=== PATIENT | female | born 1980 | race Caucasian/White ===

== ENCOUNTER 2019-07-31 09:01 | Outpatient (CLI) | payer OTHER, SELFPAY ==
--- NOTE | ~2019-07-31 | XR_ITS ---
XR chest 2V DATE: 07/31/2019 09:34 INDICATION: Cough for 5 to 6 days. History of asthma. TECHNIQUE: 08/15/2018 2 view chest COMPARISON: 08/15/2018 2 view chest FINDINGS: Normal heart size. No hilar or mediastinal enlargement. No pulmonary infiltrate or consolid ation, pleural effusion or pulmonary vascular congestion or pneumothorax. Old healed left clavicular mid shaft fracture deformity. IMPRESSION: No active cardiopulmonary disease Reviewed, dictated and finalized at location A.
== END 2019-07-31 09:02 | disposition home or self-care (01) ==
LOC: ANHIMG 09:06
PROVIDERS: PCP Emergency Medicine; Visit Provider Emergency Medicine
DX: R05 Cough (principal)
CPT/HCPCS: 71046

== ENCOUNTER 2019-08-01 11:41 | Outpatient (CLI) | payer OTHER, SELFPAY ==
[2019-08-01 12:02] LABS: Hematocrit 42.8 % (37.0-47.0); Hemoglobin 14.2 g/dL (12.0-15.0); Mean Corpuscular HGB Conc 33.2 g/dl (32-36); Mean Corpuscular Hemoglobin 29.5 pg (26-34); Mean Platelet Volume 11.3 fl (7.4-10.4); Platelet Count Result 280 k/mm3 (150-375); Red Blood Count 4.81 M/mm3 (4.2-5.4); Red Cell Distribution Width 12.3 % (11.5-14.5); White Blood Count 13.2 K/mm3 (4.5-10.0)
[2019-08-01 14:25] LABS: Hepatitis B Surface Antigen Negative (Negative)
[2019-08-01 14:30] LABS: HAV RESULT Negative (Negative); Hepatitis B Core IgM Result Negative (Negative)
[2019-08-01 14:47] LABS: Hepatitis C Virus Antibody Reactive (Negative)
[2019-08-03 09:54] LABS: Hepatitis C RNA, Quant PCR <15 IU/mL
== END 2019-08-01 11:42 | disposition home or self-care (01) ==
LOC: ANHLAB 11:45
PROVIDERS: PCP Emergency Medicine; Visit Provider Emergency Medicine
DX: D72.829 Elevated white blood cell count, unspecified (principal)
CPT/HCPCS: 36415; 80074; 85027; 87522

== ENCOUNTER 2019-12-15 11:45 | Outpatient (CLI) | payer OTHER, SELFPAY ==
[2019-12-15 12:15] LABS: Basophils Absolute Auto 0.1 K/mm3 (0.0-0.1); Basophils Percent Auto 0.5 % (0.2-1.2); Eosinophils Absolute Auto 0.2 K/mm3 (0-0.3); Eosinophils Percent Auto 1.5 % (0-4.4); Hematocrit 43.8 % (37.0-47.0); Hemoglobin 14.6 g/dL (12.0-15.0); Immature Granulocyte Absolute 0.06 K/mm3 (0.00-0.031); Immature Granulocyte Percent A 0.6 % (0-0.5); Lymphocytes Absolute Auto 2.54 K/mm3 (0.9-3.2); Lymphocytes Percent Auto 23.4 % (18.3-44.2); Mean Corpuscular HGB Conc 33.3 g/dl (32-36); Mean Corpuscular Hemoglobin 29.1 pg (26-34); Mean Corpuscular Volume 87.3 fl (80-100); Mean Platelet Volume 11.7 fl (7.4-10.4); Monocytes Absolute Auto 0.7 K/mm3 (0.1-0.6); Monocytes Percent Auto 6.2 % (2.6-8.5); Neutrophils Absolute Auto 7.4 K/mm3 (1.3-6.7); Neutrophils Percent Auto 67.8 % (45.5-73.1); Platelet Count Result 276 k/mm3 (150-375); Red Blood Count 5.02 M/mm3 (4.2-5.4); Red Cell Distribution Width 12.1 % (11.5-14.5); White Blood Count 10.9 K/mm3 (4.5-10.0)
[2019-12-15 13:06] LABS: Anion Gap 11 mmol/L (8-16); Blood Urea Nitrogen 14 mg/dL (7-17); Calcium 9.1 mg/dL (8.4-10.2); Carbon Dioxide 20 mmol/L (22-30); Chloride 107 mmol/L (98-107); Estimated Glomerular Filt Rate > 60; Glucose 94 mg/dL (65-105); Potassium 4.2 mmol/L (3.4-5.0); Sodium 138 mmol/L (137-145)
[2019-12-15 13:10] LABS: Iron 84 ug/dL (37-170)
[2019-12-15 13:17] LABS: Percent Iron Saturation 24 % (20-50)
== END 2019-12-15 11:46 | disposition home or self-care (01) ==
PROVIDERS: PCP Emergency Medicine; Visit Provider Internal Medicine Hematology & Oncology
DX: D64.9 Anemia, unspecified (principal)
CPT/HCPCS: 36415; 80048; 82728; 83540; 83550; 85025

== ENCOUNTER 2020-07-11 09:15 | Emergency (ER) | payer OTHER, SELFPAY ==
--- NOTE | 2020-07-11 09:38 | ED.BACK ---
HPI - Back Pain/Injury General Chief Complaint: Back Pain/Injury Stated Complaint: right lower back pain/swelling Time Seen by Provider: 07/11/20 09:41 Source: patient and RN notes reviewed Mode of arrival: ambulatory Limitations: no limitations History of Present Illness HPI Narrative: 39-year-old female presents with concern for acute back pain. Reports chronic back pain, C5-C6 degenerative disc disease. Reports for 1 day she has had severe low right back pain that radiates to the mid back and down the right leg. She reports right leg weakness. She reports right lower back edema and tenderness. She denies fever, abdominal pain, loss of bowel or bladder function. She denies perianal anesthesia. 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 Reports she has been taking ibuprofen, last took ibuprofen last night. Reports she also uses medical marijuana and has not used that recently. Reports up until 2 months ago had been getting monthly cortisone IM injections by her primary care physician for back pain. Patient using a walker for assistance with ambulation, does not use a walker at baseline. MD elicited complaint: back pain Related Data Home Medications Medication Instructions Recorded Confirmed ibuprofen [Motrin] 800 mg PO TID 07/11/20 07/11/20 Allergies Allergy/AdvReac Type Severity Reaction Status Date / Time povidone-iodine Allergy Severe TOLD NOT Verified 07/11/20 09:41 TO USE DUE TO SHELLFISH ALLERGY shellfish derived Allergy Severe THROAT Verified 07/11/20 09:41 SWELLING soap Allergy Severe TOLD NOT Verified 07/11/20 09:41 TO USE DUE TO SHELLFISH ALLERGY povidone Allergy Unknown Verified 07/11/20 09:41 Contrast Media Allergy Severe Unknown-TOLD Uncoded 07/11/20 09:41 BY PARENT NOT TO RECIEVE Review of Systems Review of Systems: Narrative: CONSTITUTIONAL: Denies malaise, chills, sweats, or fever. EYES: Denies visual changes CARDIOVASCULAR: Denies chest pain, palpitations, or edema. RESPIRATORY: Denies cough or dyspnea. GASTROINTESTINAL: Denies abdominal pain, vomiting, diarrhea. Reports chronic nausea, no change in nausea. Denies loss of bowel function GENITOURINARY: Denies dysuria or hematuria. Denies loss of bladder function SKIN: Denies bruising, redness MUSCULOSKELETAL: Reports severe right low back pain, swelling, tenderness. Denies other joint pain or myalgia. Denies perianal anesthesia NEUROLOGIC: Reports right leg numbness, weakness. Denies headache. PSYCHIATRIC: Denies anxiety or depression. All systems reviewed & are unremarkable except as noted in HPI and below PMFSH Social History Social History Smoking status: Current every day smoker Alcohol intake: never Gender identity (if verbalized by the patient): Female Comments At time of signature, agree with nursing past medical, surgical, social and family history. There is no relevant family history pertinent to the presenting complaint Exam Narrative: Exam Narrative: GENERAL: Well-appearing, well-nourished, and in no acute distress. HEAD: Normocephalic, atraumatic. EYES: PERRLA and EOMI. NECK: Supple. No lymphadenopathy. CHEST: Clear to auscultation. No respiratory distress. HEART: Regular rate and rhythm. Distal pulses palpable and equal, cap refill <3 seconds ABDOMEN: Obese, nontender. No CVA tenderness MUSCULOSKELETAL: Decreased strength with hip flexion. No midline back tenderness to palpation. Right lower paraspinal edema tenderness. Unable to easily transfer from sitting to standing. Gait assisted with walker SKIN: Warm, dry, no rash. No ecchymosis, erythema, open wounds to back. NEURO: No focal deficits. Alert and oriented x3. Reflexes intact. Normal gait. PSYCH: Normal mood and affect Course Course Emergency Course: Patient is aware of, understands and agrees to be transferred to the emergency department. Patient agrees to procee
[2020-07-11 09:41] VITALS: BP 120/83; PULSE 66; RESP 16; TEMP 36; O2SAT 98
[2020-07-11] MEDS: KETOROLAC (*BKC) 60 MG/2 ML VIAL IM (10:03)
== END 2020-07-11 10:15 | disposition short-term general hospital (02) ==
PROVIDERS: Emergency Provider Nurse Practitioner; PCP Internal Medicine
DX: M62.81 Muscle weakness (generalized) (principal); M54.41 Lumbago with sciatica, right side; F17.200 Nicotine dependence, unspecified, uncomplicated; M50.322 Other cervical disc degeneration at C5-C6 level
CPT/HCPCS: 96372; 99213; G0463; J1885

== ENCOUNTER 2020-09-10 10:31 | Outpatient (CLI) | payer OTHER, SELFPAY ==
[2020-09-10 11:10] LABS: Basophils Absolute Auto 0.1 K/mm3 (0.0-0.1); Basophils Percent Auto 0.5 % (0.2-1.2); Eosinophils Absolute Auto 0.2 K/mm3 (0-0.3); Eosinophils Percent Auto 2.1 % (0-4.4); Hematocrit 40.1 % (37.0-47.0); Hemoglobin 13.7 g/dL (12.0-15.0); Immature Granulocyte Absolute 0.07 K/mm3 (0.00-0.031); Immature Granulocyte Percent A 0.6 % (0-0.5); Lymphocytes Percent Auto 20.6 % (18.3-44.2); Mean Corpuscular HGB Conc 34.2 g/dl (32-36); Mean Platelet Volume 11.3 fl (7.4-10.4); Monocytes Absolute Auto 0.5 K/mm3 (0.1-0.6); Monocytes Percent Auto 4.4 % (2.6-8.5); Neutrophils Percent Auto 71.8 % (45.5-73.1); Platelet Count Result 294 k/mm3 (150-375); Red Blood Count 4.72 M/mm3 (4.2-5.4); Red Cell Distribution Width 12.5 % (11.5-14.5); White Blood Count 11.2 K/mm3 (4.5-10.0)
[2020-09-10 12:34] LABS: Iron 62 ug/dL (37-170)
[2020-09-10 12:36] LABS: Anion Gap 10 mmol/L (8-16); Blood Urea Nitrogen 13 mg/dL (7-17); Calcium 9.3 mg/dL (8.4-10.2); Carbon Dioxide 22 mmol/L (22-30); Chloride 108 mmol/L (98-107); Estimated Glomerular Filt Rate > 60; Glucose 152 mg/dL (65-105); Potassium 4.3 mmol/L (3.4-5.0); Sodium 140 mmol/L (137-145)
[2020-09-10 12:43] LABS: Percent Iron Saturation 20 % (20-50)
== END 2020-09-10 10:32 | disposition home or self-care (01) ==
PROVIDERS: PCP Internal Medicine; Visit Provider Internal Medicine Hematology & Oncology
DX: D64.9 Anemia, unspecified (principal)
CPT/HCPCS: 36415; 80048; 82728; 83540; 83550; 85025

== ENCOUNTER 2021-04-06 15:48 | Emergency (ER) | payer OTHER, SELFPAY ==
[2021-04-06] VITALS (16 sets, daily range): BP systolic 113–137; BP diastolic 58–79; PULSE 66–79; RESP 16–25; TEMP 36.6; O2SAT 97–100
--- NOTE | 2021-04-06 18:06 | ECG_ITS ---
Measurements Intervals [place] Rate: 65 P: 29 CO: 168 QRS: 32 QRSD: 90 T: 39 QT: 399 QTc: 417 Interpretive Statements SINUS RHYTHM EARLY PRECORDIAL R/S TRANSITION BORDERLINE ECG Electronically Signed On 04-06-2021 20:15:28 [employer] by Andrés Larson D.O.
--- NOTE | 2021-04-06 18:07 | ED.NAVMDI ---
HPI - Nausea/Vomiting/Diarrhea General Chief complaint: Nausea/Vomiting/Diarrhea Stated complaint: n/v/d Time Seen by Provider: 04/06/21 17:44 Source: patient Mode of arrival: ambulatory Limitations: no limitations History of Present Illness HPI Narrative: Patient is a 40-year-old female complaining of nausea, vomiting, diarrhea accompanied by dizziness that started yesterday. Patient describes her vomitus as nonbilious nonbloody. Patient describes her diarrhea as loose watery, nonbloody. Patient states that she is dizzy possibly because she is dehydrated. Patient also complaining of abdominal discomfort, epigastric, moderate, burning, worse when she vomits. Patient admits that she has been having nasal congestion, body aches and subjective fever since yesterday. Patient denies any chest pain or shortness of breath. Related Data Home Medications Medication Instructions Recorded Confirmed ibuprofen [Motrin] 800 mg PO TID 07/11/20 07/11/20 Allergies Allergy/AdvReac Type Severity Reaction Status Date / Time povidone-iodine Allergy Severe TOLD NOT Verified 04/06/21 19:05 TO USE DUE TO SHELLFISH ALLERGY shellfish derived Allergy Severe THROAT Verified 04/06/21 19:05 SWELLING soap Allergy Severe TOLD NOT Verified 04/06/21 19:05 TO USE DUE TO SHELLFISH ALLERGY povidone Allergy Unknown Unknown Verified 04/06/21 19:05 Contrast Media Allergy Severe Unknown-TOLD Uncoded 07/11/20 09:41 BY PARENT NOT TO RECIEVE Review of Systems Review of Systems: All systems reviewed & are unremarkable except as noted in HPI and below Constitutional: Constitutional: Denies body ache(s), Denies excessive sweating, Denies fatigue, Denies headache(s), Denies lethargy, Denies malaise, Denies weakness and Denies weight loss Eyes: Eyes: Denies blurry vision, Denies change in vision and Denies loss of vision ENT: Denies dizziness, Denies ear discharge, Denies headache(s), Denies lip swelling, Denies epistaxis, Denies neck pain, Denies throat swelling and Denies tongue swelling Cardiovascular: Cardiovascular: Denies chest pain, Denies chest pain at rest, Denies chest pain with activity, Denies diaphoresis, Denies rapid heart rate, Denies edema, Denies irregular heart rhythm, Denies lightheadedness, Denies palpitations, Denies dyspnea and Denies dyspnea on exertion Respiratory: Respiratory: Denies chest congestion, Denies cough, Denies hemoptysis, Denies dyspnea and Denies dyspnea on exertion Gastrointestinal: Gastrointestinal: Denies abdominal pain, Denies melena, Denies hematochezia, Denies diarrhea and Denies hematemesis Musculoskeletal: Musculoskeletal: Denies abnormal gait, Denies deformity, Denies joint swelling, Denies limited range of motion, Denies neck pain and Denies numbness Neurologic: Denies Abnormal speech present, Denies abnormal gait, Denies confusion, Denies dizziness, Denies headache(s), Denies focal weakness, Denies loss of vision, Denies numbness, Denies Other visual disturbances, Denies Sensory deficit (Neuro) and Denies weakness Psychiatric: Psychiatric: Denies confusion, Denies depression, Denies auditory hallucinations, Denies homicidal ideation and Denies suicidal ideation Endocrine: Endocrine: Denies cold intolerance, Denies excessive sweating, Denies fatigue, Denies heat intolerance and Denies palpitations Hematologic/Lymphatic: Hematologic/Lymphatic: Denies easy bleeding and Denies easy bruising Allergic/Immunologic: Allergic/Immunologic: Denies lip swelling, Denies throat swelling and Denies tongue swelling PMFSH Social History Social History Smoking status: Current every day smoker Alcohol intake: never Gender identity (if verbalized by the patient): Female Comments Past medical history: None Family history: Hypertension Social history: Positive for smoker, no EtOH use, marijuana use Exam Const
[2021-04-06 18:15] LABS: Basophils Absolute Auto 0.1 K/mm3 (0.0-0.1); Basophils Percent Auto 0.4 % (0.2-1.2); Eosinophils Absolute Auto 0.2 K/mm3 (0-0.3); Eosinophils Percent Auto 1.4 % (0-4.4); Hematocrit 41.3 % (37.0-47.0); Hemoglobin 13.7 g/dL (12.0-15.0); Immature Granulocyte Absolute 0.06 K/mm3 (0.00-0.031); Immature Granulocyte Percent A 0.5 % (0-0.5); Lymphocytes Absolute Auto 3.05 K/mm3 (0.9-3.2); Lymphocytes Percent Auto 23.4 % (18.3-44.2); Mean Corpuscular HGB Conc 33.2 g/dl (32-36); Mean Corpuscular Hemoglobin 28.5 pg (26-34); Mean Corpuscular Volume 85.9 fl (80-100); Mean Platelet Volume 11.2 fl (7.4-10.4); Monocytes Absolute Auto 0.8 K/mm3 (0.1-0.6); Monocytes Percent Auto 6.3 % (2.6-8.5); Neutrophils Absolute Auto 8.9 K/mm3 (1.3-6.7); Platelet Count Result 285 k/mm3 (150-375); Red Blood Count 4.81 M/mm3 (4.2-5.4); Red Cell Distribution Width 12.3 % (11.5-14.5)
[2021-04-06 18:26] LABS: Alanine Aminotransferase 29 U/L (4-35); Albumin Level 4.3 g/dL (3.5-5.1); Alkaline Phosphatase 78 U/L (38-126); Anion Gap 7 mmol/L (8-16); Aspartate Amino Transferase 27 U/L (14-36); Bilirubin,Total 0.3 mg/dL (0.2-1.3); Blood Urea Nitrogen 13 mg/dL (7-17); Calcium 9.2 mg/dL (8.4-10.2); Carbon Dioxide 22 mmol/L (22-30); Chloride 106 mmol/L (98-107); Estimated CRCL calculation 131 ml/min; Estimated Glomerular Filt Rate > 60; Glucose 128 mg/dL (65-110); Lipase 50 U/L (23-300); Potassium 3.5 mmol/L (3.4-5.0); Sodium 135 mmol/L (137-145)
[2021-04-06 18:38] LABS: Troponin I < 0.012 ng/mL (0.000-0.034)
[2021-04-06] MEDS: SODIUM CHLORIDE 0.9% IV 1,000 ML 999 ML IV CONT (18:54)
[2021-04-06] MEDS: PROMETHAZINE HCL 25 MG/ML AMPUL 12.5 MG IV PUSH (19:14)
--- NOTE | 2021-04-06 19:25 | PC.NURSE ---
Report received from CARMELINA Gallegos. Assumed care of patient at this time.
--- NOTE | 2021-04-06 20:31 | PC.NURSE ---
vrbo head ct with out contrast
--- NOTE | 2021-04-06 20:57 | PC.NURSE ---
Patient calls this nurse into room and states she wants to go home. She states she is feeling better and does not want the toradol or CT. ERP notified.
== END 2021-04-06 21:14 | disposition home or self-care (01) ==
PROVIDERS: Emergency Provider Emergency Medicine; PCP Internal Medicine
DX: B34.9 Viral infection, unspecified (principal); F17.210 Nicotine dependence, cigarettes, uncomplicated
CPT/HCPCS: 36415; 80053; 83690; 84484; 85025; 93005; 96361; 96374; 99284; J2550; J7030

== ENCOUNTER 2021-10-23 10:42 | Outpatient (CLI) | payer OTHER, SELFPAY ==
[2021-10-23 11:32] LABS: Basophils Absolute Auto 0.1 K/mm3 (0.0-0.1); Basophils Percent Auto 0.4 % (0.2-1.2); Eosinophils Absolute Auto 0.1 K/mm3 (0-0.3); Eosinophils Percent Auto 1.2 % (0-4.4); Hemoglobin 13.2 g/dL (12.0-15.0); Immature Granulocyte Absolute 0.11 K/mm3 (0.00-0.031); Immature Granulocyte Percent A 0.9 % (0-0.5); Lymphocytes Absolute Auto 2.43 K/mm3 (0.9-3.2); Lymphocytes Percent Auto 20.5 % (18.3-44.2); Mean Corpuscular HGB Conc 32.2 g/dl (32-36); Mean Corpuscular Hemoglobin 28.5 pg (26-34); Mean Corpuscular Volume 88.6 fl (80-100); Mean Platelet Volume 11.5 fl (7.4-10.4); Monocytes Absolute Auto 0.6 K/mm3 (0.1-0.6); Monocytes Percent Auto 4.8 % (2.6-8.5); Neutrophils Absolute Auto 8.5 K/mm3 (1.3-6.7); Neutrophils Percent Auto 72.2 % (45.5-73.1); Platelet Count Result 271 k/mm3 (150-375); Red Blood Count 4.63 M/mm3 (4.2-5.4); Red Cell Distribution Width 12.6 % (11.5-14.5); White Blood Count 11.8 K/mm3 (4.5-10.0)
[2021-10-23 11:41] LABS: Appearance Urine Clear (Clear); Bilirubin Urine Negative (Negative); Color Urine Yellow (Yellow); Glucose Urine UA Negative (Negative); Ketones Urine Negative (Negative); Leukocyte Esterase Ur Negative LEU/UL (NEGATIVE); Nitrate Urine Negative (Negative); Protein Urine Negative (Negative); Specific Grav Ur 1.025 (1.001-1.035); Urobilinogen Urine 0.2 mg/dL (<2.0); pH Urine 5.5 (5.0-9.0)
[2021-10-23 11:44] LABS: Alanine Aminotransferase 23 U/L (6-35); Albumin Level 4.2 g/dL (3.5-5.1); Alkaline Phosphatase 84 U/L (38-126); Anion Gap 5 mmol/L (8-16); Aspartate Amino Transferase 19 U/L (14-36); Bilirubin,Total 0.3 mg/dL (0.2-1.3); Blood Urea Nitrogen 16 mg/dL (7-17); Calcium 8.6 mg/dL (8.4-10.2); Carbon Dioxide 28 mmol/L (22-30); Chloride 105 mmol/L (98-107); Estimated Glomerular Filt Rate > 60; Glucose 147 mg/dL (65-110); Potassium 3.9 mmol/L (3.4-5.0); Sodium 138 mmol/L (137-145)
[2021-10-23 11:45] LABS: Mucus Urine Rare /lpf; RBC Urine 0-2 /hpf (0-2); Squamous Epithelial Cell Urine Few /hpf (Few); WBC Urine 0-3 /hpf (0-3)
[2021-10-23 11:52] LABS: Add Urine Microscopic? YES; Blood Urine Trace-Intact (Negative)
[2021-10-23 12:27] LABS: HIV 1/2 Ab P24 Ag Result Negative (Negative)
[2021-10-23 13:13] LABS: Hepatitis B Surface Antigen Negative (Negative)
[2021-10-23 13:17] LABS: HAV RESULT Negative (Negative); Hepatitis B Core IgM Result Negative (Negative)
[2021-10-23 13:27] LABS: Hepatitis C Virus Antibody Reactive (Negative)
[2021-10-27 07:33] LABS: Rapid Plasma Reagin Non-Reactive (NonReactive)
[2021-10-28 13:43] LABS: Hepatitis C RNA, Quant PCR <15 IU/mL
== END 2021-10-23 10:43 | disposition home or self-care (01) ==
LOC: ANHLAB 10:45
PROVIDERS: PCP Emergency Medicine; Visit Provider Emergency Medicine
DX: R10.9 Unspecified abdominal pain (principal); R35.0 Frequency of micturition
CPT/HCPCS: 36415; 80053; 80074; 81001; 85025; 86592; 86703; 87086; 87491; 87522; 87591; G0432

== ENCOUNTER 2021-11-05 14:21 | Outpatient (CLI) | payer OTHER, SELFPAY ==
--- NOTE | ~2021-11-05 | CT_ITS ---
EXAMINATION: CT abdomen pelvis wo con DATE: 11/05/2021 14:49 INDICATION: Lower abdominal pain. Nausea. TECHNIQUE: Computed tomography (CT) of the abdomen and pelvis was performed without intravenous contr ast. The dose-length product was 1591.14 mGy-cm. Automated exposure control and iterative reconstruct ion technique were employed. COMPARISON: CT dated 12/17/2018 FINDINGS: Heart size normal. No significant pleural or pericardial effusion. Status post cholecystect cassie. The liver, spleen, pancreas, adrenal glands and kidneys are unremarkable. Nonobstructive bowel g as pattern. Normal appendix. No abnormal pelvic masses or fluid collections. No free air or free flui d. No significant vascular abnormality. No lymphadenopathy. No acute osseous abnormality. No evidence for hernia. IMPRESSION: 1. No acute abdominal abnormality. Reviewed, dictated and finalized at location A.
== END 2021-11-05 14:22 | disposition home or self-care (01) ==
LOC: ANHIMG 14:22
PROVIDERS: PCP Emergency Medicine; Visit Provider Emergency Medicine
DX: R10.9 Unspecified abdominal pain (principal)
CPT/HCPCS: 74176

== ENCOUNTER 2022-02-04 08:02 | Outpatient (CLI) | payer OTHER, SELFPAY ==
--- NOTE | 2022-02-19 11:07 | WPDHOMESLEEP ---
Sleep Study - Home Unattended Date of Study: 02/04/22 Ordering Provider: Smith Gusman APRN Interpreting Provider: Zenaida Hernandez, DO Home Sleep Study Type: Apnea Link Air Height: 1.55 m Weight: 129.274 kg Body Mass Index: 53.8 Neck Circumference (inches): 17.25 [place]: 4 Reason for Sleep Study History of ZAHRA. Issues with insomnia. Sleep History The patient is a 41-year-old female with anxiety, PTSD, asthma, hyperlipidemia, degenerative disc disease, sciatica, hepatitis-C in remission since 2017, headaches, history of drug abuse, history of tobacco use and history of obstructive sleep apnea that had a sleep study ordered by the Pulmonary group. The patient works in recovery support. She occasionally awakens from sleep short of breath. She occasionally awakens at night with heartburn, belching or cough. She constantly snores and is frequently loud enough that others complain. She frequently has trouble sleeping when she has a cold. She frequently has breathing problems at night observed by herself or others. She constantly sweats excessively at night. She frequently has heart palpitations or irregular heartbeats during the night. She rarely falls asleep during the day but never while driving. she denies experiencing loss of muscle tone when extremely emotional. She occasionally has trouble at school or work due to sleepiness. She occasionally feels unable to move while waking up or falling asleep. He rarely experiences vivid dreamlike scenes upon awakening or falling asleep. She constantly feels afraid of going to sleep. She frequently has nightmares. She rarely remembers her dreams. She occasionally has thoughts racing through her mind. She occasionally feels sad or depressed. She frequently has anxiety. She rarely has muscular tension. She rarely notices parts of her body jerk. She frequently kicks during the night. She frequently has crawling and aching feelings in her legs and occasionally has leg pain during the night. She constantly grinds her teeth during sleep and occasionally has morning jaw pain. She constantly is bothered by pain during the day but frequently awakened by pain during the night. She constantly wakes up feeling stiff morning. She occasionally wakes up with sore achy muscles. She occasionally wakes up with pain in neck, spine or other joints. She goes to bed at 8:00 p.m. on weekdays and at 9:00 p.m. on the weekends. She is able to fall asleep immediately. He wakes up 8-10 times throughout the night for unknown reasons. When she awakens, she will listen to books on tape. It takes her 30-90 minutes to fall back asleep. He wakes up between 130-2 a.m. on both weekdays and weekends. She typically gets 3 hours of sleep per night. She will stay in bed for 20 minutes after waking up in the morning. She currently lives with her and children. She does not consume any caffeinated beverages within 2 hours of bedtime. She does not engage in physical exercise before bedtime. She will watch television before falling asleep. She does not take naps in the afternoon or the evening. She consumes a minimal amount of caffeine per day. She no longer smokes cigarettes. She denies alcohol use. She currently uses THC. [facility] Past Medical History Medical History Anxiety Asthma DDD (degenerative disc disease), lumbar History of hepatitis C PTSD (post-traumatic stress disorder) Sciatica Surgical History Surgical History History of salpingo-oophorectomy Hx of cholecystectomy Hx of tonsillectomy Social History Social History Smoking packs per day: 1 Smoking cigarettes per day: 20.0 Years smoked: 30 Smoking pack-years: 30.00 Smoking status: Former smoker Smoking end date: 04/12/17 Alcohol intake: never Gender
[2022-02-19 11:44] VITALS: BMI 53.8
--- NOTE | 2023-04-16 13:40 | SLEEP ---
pt daughter sat on pap device and cracked it. she is to receive new machine
== END 2022-02-05 14:51 | disposition home or self-care (01) ==
LOC: ANHCSM 08:03
PROVIDERS: PCP Emergency Medicine; Visit Provider Nurse Practitioner Family
DX: G47.33 Obstructive sleep apnea (adult) (pediatric) (principal); G47.00 Insomnia, unspecified
CPT/HCPCS: 95806

== ENCOUNTER 2022-07-09 15:18 | Emergency (ER) | payer OTHER, SELFPAY ==
--- NOTE | ~2022-07-09 | US_ITS ---
EXAMINATION: US pelvic complete w TV DATE: 07/09/2022 17:55 INDICATION: Bleeding and pelvic pain TECHNIQUE: Multiple transabdominal and endovaginal sonographic images of the pelvis were obtained. COMPARISON: 12/29/2017 FINDINGS: The uterus measures 8.6 x 4.1 x 5.4 cm. The endometrial complex measures 5 mm. The ovaries are not visualized however no adnexal abnormality is seen. There is no free fluid in the pelvis. IMPRESSION: 1. No sonographic correlate for the patient's symptoms. Reviewed, dictated and finalized at location F.
[2022-07-09 15:20] VITALS: BP 170/63; PULSE 84; RESP 16; TEMP 36.7; O2SAT 96
[2022-07-09 15:52] LABS: Basophils Absolute Auto 0.1 K/mm3 (0.0-0.1); Basophils Percent Auto 0.4 % (0.2-1.2); Eosinophils Absolute Auto 0.2 K/mm3 (0-0.3); Eosinophils Percent Auto 1.7 % (0-4.4); Hematocrit 41.2 % (37.0-47.0); Hemoglobin 13.8 g/dL (12.0-15.0); Immature Granulocyte Absolute 0.11 K/mm3 (0.00-0.031); Immature Granulocyte Percent A 0.8 % (0-0.5); Lymphocytes Absolute Auto 2.77 K/mm3 (0.9-3.2); Lymphocytes Percent Auto 19.6 % (18.3-44.2); Mean Corpuscular HGB Conc 33.5 g/dl (32-36); Mean Corpuscular Hemoglobin 28.5 pg (26-34); Mean Corpuscular Volume 85.1 fl (80-100); Mean Platelet Volume 11.4 fl (7.4-10.4); Monocytes Absolute Auto 0.9 K/mm3 (0.1-0.6); Neutrophils Absolute Auto 10.1 K/mm3 (1.3-6.7); Neutrophils Percent Auto 71.5 % (45.5-73.1); Platelet Count Result 356 k/mm3 (150-375); Red Blood Count 4.84 M/mm3 (4.2-5.4); Red Cell Distribution Width 12.7 % (11.5-14.5); White Blood Count 14.1 K/mm3 (4.5-10.0)
[2022-07-09 16:13] LABS: Bacteria Urine Rare /hpf; Need Manual Microscopic Reviewed; Non Pathogenic Casts 0-2; RBC Urine >100 /hpf (0-2); Squamous Epithelial Cell Urine Occasional /hpf (Few)
[2022-07-09] MEDS: HYDROcodone/acetaminophen (*CRX) 5-325 MG TABLET 1 TAB PO (16:19)
[2022-07-09 16:20] LABS: Appearance Urine Cloudy (Clear); Bilirubin Urine 1+ (Negative); Blood Urine 3+ (Negative); Glucose Urine UA Negative (Negative); Ketones Urine Negative (Negative); Leukocyte Esterase Ur 1+ LEU/UL (Negative); Nitrate Urine Negative (Negative); Protein Urine 2+ mg/dL (Negative); Specific Grav Ur 1.031 (1.001-1.035)
[2022-07-09 16:21] LABS: Add Urine Microscopic? YES; Color Urine Red (Yellow)
--- NOTE | 2022-07-09 16:54 | ED.FEMALEGU ---
HPI - Female Genitourinary General Chief complaint: Vaginal Bleeding Stated complaint: vaginal bleeding Time Seen by Provider: 07/09/22 16:06 History of Present Illness HPI Narrative: Patient is a 41-year-old female who presents ER with vaginal bleeding. She is gone through 6-8 pads today. Bleeding is improving at this time and was heavier earlier in the day. She has not had a menstrual period for over a year. She has had an endometrial ablation in the past. She called her [facility] office recommended she come here as did her PCP. She is not on any blood thinners. She has some lower abdominal cramping. No fevers or chills or sweats. No vaginal discharge. No concern for STI. Related Data Home Medications Medication Instructions Recorded Confirmed ibuprofen 800 mg tablet 800 mg PO TID 07/11/20 05/27/22 albuterol sulfate 90 mcg/actuation 1 puff inhalation Q4H PRN 12/05/21 05/27/22 aerosol inhaler ergocalciferol (vitamin D2) 1,250 1,250 mcg PO WEEKLY 12/05/21 05/27/22 mcg (50,000 unit) capsule fluticasone propionate 50 2 spray intranasal DAILY 12/05/21 05/27/22 mcg/actuation nasal spray,suspension (Flonase Allergy Relief) metformin 500 mg tablet 500 mg PO BIDWMEAL 12/05/21 05/27/22 sertraline 50 mg tablet (Zoloft) 50 mg PO DAILY 12/05/21 05/27/22 simvastatin 20 mg tablet 20 mg PO DAILY 12/05/21 05/27/22 Allergies Allergy/AdvReac Type Severity Reaction Status Date / Time povidone-iodine Allergy Severe TOLD NOT Verified 07/09/22 15:20 TO USE DUE TO SHELLFISH ALLERGY shellfish derived Allergy Severe THROAT Verified 07/09/22 15:20 SWELLING soap Allergy Severe TOLD NOT Verified 07/09/22 15:20 TO USE DUE TO SHELLFISH ALLERGY povidone Allergy Unknown Unknown Verified 07/09/22 15:20 Contrast Media Allergy Severe Unknown-TOLD Uncoded 07/09/22 15:20 BY PARENT NOT TO RECIEVE Review of Systems Review of Systems: All systems reviewed & are unremarkable except as noted in HPI and below ENT: Denies nasal congestion and Denies sore throat Cardiovascular: Cardiovascular: Denies chest pain, Denies radiating jaw, neck or arm pain and Denies slow heart rate Respiratory: Respiratory: Denies cough and Denies dyspnea Gastrointestinal: Gastrointestinal: Reports abdominal pain, Denies nausea and Denies vomiting Genitourinary: Genitourinary: Reports abnormal vaginal bleeding, Denies nocturia, Denies dysuria and Reports pelvic pain PMFSH Past Medical History Medical History Anxiety Asthma DDD (degenerative disc disease), lumbar History of hepatitis C PTSD (post-traumatic stress disorder) Sciatica Surgical History Surgical History History of salpingo-oophorectomy Hx of cholecystectomy Hx of tonsillectomy Social History Social History Smoking packs per day: 1 Smoking cigarettes per day: 20.0 Years smoked: 30 Smoking pack-years: 30.00 Smoking status: Former smoker Smoking end date: 04/12/17 Alcohol intake: never Gender identity (if verbalized by the patient): Female Exam Narrative: GENERAL: Well-appearing, well-nourished, and in no acute distress. HEAD: Normocephalic, atraumatic. ENT: Mucous membranes moist. CHEST: Clear to auscultation. No respiratory distress. HEART: Regular rate and rhythm. Normal peripheral pulses. ABDOMEN: Soft, mild suprapubic discomfort without guarding, nondistended. EXTREMITIES: Normal range of motion. No edema. SKIN: Warm, dry, no rash. NEURO: Alert and oriented x3. PSYCH: Normal mood and affect. Course Course Emergency Course: Patient resting comfortably. Informed of lab and imaging results. Patient felt appropriate for discharge home. Vital Signs Vital signs: Vital Signs Temperature 98.0 F 07/09/22 15:20 Pulse Ra
[2022-07-09 17:48] LABS: Pregnancy On Board Control Positive; Urine Pregnancy Test Negative
[2022-07-09 18:29] VITALS: BP 117/82; PULSE 84; RESP 18; O2SAT 98
== END 2022-07-09 18:54 | disposition home or self-care (01) ==
PROVIDERS: Emergency Provider Emergency Medicine; PCP Emergency Medicine
DX: N93.8 Other specified abnormal uterine and vaginal bleeding (principal); J45.909 Unspecified asthma, uncomplicated; F41.9 Anxiety disorder, unspecified; F43.10 Post-traumatic stress disorder, unspecified; Z86.19 Personal history of other infectious and parasitic diseases; Z87.891 Personal history of nicotine dependence; Z79.84 Long term (current) use of oral hypoglycemic drugs
CPT/HCPCS: 36415; 76830; 76856; 81001; 81025; 85025; 87086; 87088; 99284; A9270

== ENCOUNTER 2022-08-24 13:43 | Outpatient (CLI) | payer OTHER, SELFPAY ==
[2022-08-24 14:53] LABS: Basophils Absolute Auto 0.1 K/mm3 (0.0-0.1); Basophils Percent Auto 0.6 % (0.2-1.2); Eosinophils Absolute Auto 0.2 K/mm3 (0-0.3); Eosinophils Percent Auto 1.5 % (0-4.4); Hematocrit 41.5 % (37.0-47.0); Hemoglobin 13.9 g/dL (12.0-15.0); Immature Granulocyte Absolute 0.07 K/mm3 (0.00-0.031); Immature Granulocyte Percent A 0.7 % (0-0.5); Lymphocytes Absolute Auto 2.62 K/mm3 (0.9-3.2); Lymphocytes Percent Auto 24.8 % (18.3-44.2); Mean Corpuscular HGB Conc 33.5 g/dl (32-36); Mean Corpuscular Hemoglobin 28.4 pg (26-34); Mean Corpuscular Volume 84.9 fl (80-100); Mean Platelet Volume 12.3 fl (7.4-10.4); Monocytes Absolute Auto 0.6 K/mm3 (0.1-0.6); Monocytes Percent Auto 5.5 % (2.6-8.5); Neutrophils Absolute Auto 7.1 K/mm3 (1.3-6.7); Neutrophils Percent Auto 66.9 % (45.5-73.1); Platelet Count Result 286 k/mm3 (150-375); Red Blood Count 4.89 M/mm3 (4.2-5.4); Red Cell Distribution Width 12.5 % (11.5-14.5); White Blood Count 10.6 K/mm3 (4.5-10.0)
[2022-08-24 15:28] LABS: Erythrocyte Sedimentation Rate 14 mm/hr (0-20)
[2022-08-24 19:36] LABS: Creatinine Urine 47.8 mg/dL
[2022-08-24 19:48] LABS: MALB Creatinine Ratio 67.6 mg/g (0-30); Microalbumin Urine Random 32.3 mg/L (0-16.7)
[2022-08-24 22:16] LABS: Alanine Aminotransferase 62 U/L (6-35); Albumin Level 4.5 g/dL (3.5-5.1); Alkaline Phosphatase 85 U/L (38-126); Anion Gap 7 mmol/L (8-16); Aspartate Amino Transferase 69 U/L (14-36); Bilirubin,Total 0.4 mg/dL (0.2-1.3); Blood Urea Nitrogen 16 mg/dL (7-17); CRP 1.3 mg/dL (<1.0); Calcium 9.3 mg/dL (8.4-10.2); Carbon Dioxide 29 mmol/L (22-30); Chloride 100 mmol/L (98-107); Cholesterol 201 mg/dL (0-200); Estimated Glomerular Filt Rate > 60; Glucose 354 mg/dL (65-110); HDL Direct 31 mg/dL; Potassium 3.9 mmol/L (3.4-5.0); Sodium 136 mmol/L (137-145); Triglycerides 325 mg/dL (<150)
[2022-08-24 22:25] LABS: LDL Cholesterol Direct 132 mg/dL
[2022-08-24 23:04] LABS: Iron 56 ug/dL (37-170)
[2022-08-24 23:13] LABS: Percent Iron Saturation 16 % (20-50)
[2022-08-24 23:16] LABS: Free T4 Free Thyroxine 0.94 ng/mL (0.78-2.19)
[2022-08-24 23:17] LABS: Vitamin D 25 Hydroxy < 12.8 ng/mL
[2022-08-24 23:18] LABS: Hemoglobin A1C 10.3 % (<5.7)
== END 2022-08-24 13:44 | disposition home or self-care (01) ==
LOC: ANHLAB 13:47
PROVIDERS: PCP Emergency Medicine; Visit Provider Internal Medicine Hematology & Oncology
DX: E11.9 Type 2 diabetes mellitus without complications (principal); E78.5 Hyperlipidemia, unspecified; E55.9 Vitamin D deficiency, unspecified; D72.829 Elevated white blood cell count, unspecified
CPT/HCPCS: 36415; 80053; 80061; 82043; 82306; 82728; 83036; 83540; 83550; 84439; 84443; 85025; 85652; 86140

== ENCOUNTER 2022-11-25 12:27 | Emergency (ER) | payer OTHER, SELFPAY ==
--- NOTE | ~2022-11-25 | XR_ITS ---
EXAMINATION: XR ankle RT min 3V DATE: 11/25/2022 13:02 INDICATION: Right ankle injury and pain. TECHNIQUE: 4 views of right ankle were obtained. COMPARISON: None. FINDINGS: Bone alignment is normal. No fracture. Joint spaces are normal. There is ankle soft tissue swelling. IMPRESSION: 1. No fracture. Reviewed, dictated and finalized at location A. IMPRESSION: 1. No fracture.
--- NOTE | ~2022-11-25 | XR_ITS ---
EXAMINATION: XR foot RT min 3V DATE: 11/25/2022 13:01 INDICATION: Right foot lateral pain. TECHNIQUE: 4 views of right foot were obtained. COMPARISON: None. FINDINGS: Bone alignment is normal. No fracture. Joint spaces are normal. IMPRESSION: 1. No fracture. Reviewed, dictated and finalized at location A. IMPRESSION: 1. No fracture.
[2022-11-25 12:35] VITALS: BP 136/64; PULSE 89; RESP 16; TEMP 36.7; O2SAT 100
--- NOTE | 2022-11-25 13:17 | ED.LOWEXIN ---
HPI - Extremity Injury (Lower) General Chief Complaint: Extremity Injury, Lower Stated Complaint: Right Ankle Pain Time Seen by Provider: 11/25/22 13:21 Source: patient Mode of arrival: ambulatory Limitations: no limitations History of Present Illness HPI Narrative: 42-year-old female presents for complaint of right ankle pain and swelling after injury 5 days ago. She states she missed the last step causing her to roll her ankle and fall. Since then she has taken ibuprofen, iced, elevated and rested. She has been using a walking boot from her daughter. Continues to report pain. Endorses she is recovering addict and does not want pain medication. She is concerned for ankle fracture. Rates pain 9.5/10. Reports she sprains the ankle about 2 times each year. Related Data Home Medications Medication Instructions Recorded Confirmed ibuprofen 800 mg tablet 800 mg PO TID 07/11/20 11/25/22 albuterol sulfate 90 mcg/actuation 1 puff inhalation Q4H PRN sob 12/05/21 11/25/22 aerosol inhaler ergocalciferol (vitamin D2) 1,250 1,250 mcg PO WEEKLY 12/05/21 11/25/22 mcg (50,000 unit) capsule fluticasone propionate 50 2 spray intranasal DAILY 12/05/21 11/25/22 mcg/actuation nasal spray,suspension (Flonase Allergy Relief) metformin 500 mg tablet 500 mg PO BIDWMEAL 12/05/21 11/25/22 sertraline 50 mg tablet (Zoloft) 50 mg PO DAILY 12/05/21 11/25/22 simvastatin 20 mg tablet 20 mg PO DAILY 12/05/21 11/25/22 Allergies Allergy/AdvReac Type Severity Reaction Status Date / Time povidone-iodine Allergy Severe TOLD NOT Verified 11/25/22 12:50 TO USE DUE TO SHELLFISH ALLERGY shellfish derived Allergy Severe THROAT Verified 11/25/22 12:50 SWELLING soap Allergy Severe TOLD NOT Verified 11/25/22 12:50 TO USE DUE TO SHELLFISH ALLERGY povidone Allergy Unknown Unknown Verified 11/25/22 12:50 Contrast Media Allergy Severe Unknown-TOLD Uncoded 11/25/22 12:50 BY PARENT NOT TO RECIEVE Review of Systems Review of Systems: CONSTITUTIONAL: Denies body aches, fever, chills EYES: Denies visual changes ENT: Denies rhinorrhea, congestion CARDIOVASCULAR: Denies chest pain, palpitations, or edema. RESPIRATORY: Denies cough or dyspnea. GASTROINTESTINAL: Denies abdominal pain, nausea, vomiting, or diarrhea. SKIN: Denies rash, itching, or wounds. MUSCULOSKELETAL: Reports right ankle pain denies back pain, or myalgia. NEUROLOGIC: Denies headache, numbness, tingling, or weakness. PSYCH: Denies depression or anxiety. All systems reviewed & are unremarkable except as noted in HPI and below PMFSH Past Medical History Medical History Anxiety Asthma DDD (degenerative disc disease), lumbar History of hepatitis C PTSD (post-traumatic stress disorder) Sciatica Surgical History Surgical History History of salpingo-oophorectomy Hx of cholecystectomy Hx of tonsillectomy Social History Social History Smoking packs per day: 1 Smoking cigarettes per day: 20.0 Years smoked: 30 Smoking pack-years: 30.00 Smoking status: Former smoker Smoking end date: 04/12/17 Alcohol intake: never Gender identity (if verbalized by the patient): Female Comments At time of signature, I have reviewed and agree with nursing past medical, surgical, social and family history unless otherwise noted. Please see nursing chart for further information. There is no relevant family history pertinent to the presenting complaint Exam Narrative: GENERAL: Well-appearing, well-nourished, and in no acute distress. HEAD: Normocephalic, atraumatic. EYES: conjunctivae clear NECK: Supple. CHEST: Speaks in full sentences. No respiratory distress. HEART: Regular rate and rhythm. Normal and equal peripheral pulses. EXTREMITIES:
== END 2022-11-25 13:41 | disposition home or self-care (01) ==
PROVIDERS: Emergency Provider Nurse Practitioner Family; PCP Emergency Medicine
DX: S93.401A Sprain of unspecified ligament of right ankle, initial encounter (principal); S96.911A Strain of unspecified muscle and tendon at ankle and foot level, right foot, initial encounter; W10.9XXA Fall (on) (from) unspecified stairs and steps, initial encounter; Z87.891 Personal history of nicotine dependence; J45.909 Unspecified asthma, uncomplicated; M51.36 Other intervertebral disc degeneration, lumbar region; F41.9 Anxiety disorder, unspecified
CPT/HCPCS: 73610; 73630; 99213; G0463

== ENCOUNTER 2023-03-16 08:50 | Outpatient (CLI) | payer OTHER, SELFPAY ==
[2023-03-16 09:20] LABS: Hematocrit 46.3 % (37.0-47.0); Hemoglobin 15.5 g/dL (12.0-15.0); Mean Corpuscular HGB Conc 33.5 g/dl (32-36); Mean Corpuscular Volume 83.6 fl (80-100); Mean Platelet Volume 11.6 fl (7.4-10.4); Platelet Count Result 244 k/mm3 (150-375); Red Blood Count 5.54 M/mm3 (4.2-5.4); White Blood Count 6.7 K/mm3 (4.5-10.0)
[2023-03-16 10:01] LABS: Alanine Aminotransferase 52 U/L (6-35); Albumin Level 4.4 g/dL (3.5-5.1); Alkaline Phosphatase 102 U/L (38-126); Anion Gap 14 mmol/L (8-16); Aspartate Amino Transferase 38 U/L (14-36); Bilirubin,Total 0.7 mg/dL (0.2-1.3); Blood Urea Nitrogen 9 mg/dL (7-17); Calcium 9.1 mg/dL (8.4-10.2); Carbon Dioxide 24 mmol/L (22-30); Chloride 99 mmol/L (98-107); Cholesterol 172 mg/dL (0-200); Estimated Glomerular Filt Rate > 60; Glucose 276 mg/dL (65-110); HDL Direct 29 mg/dL; Potassium 3.6 mmol/L (3.4-5.0); Sodium 137 mmol/L (137-145); Triglycerides 175 mg/dL (<150)
[2023-03-16 10:11] LABS: LDL Cholesterol Direct 108 mg/dL
[2023-03-16 12:40] LABS: Hemoglobin A1C 9.8 % (<5.7)
[2023-03-16 13:57] LABS: Creatinine Urine 341.5 mg/dL
[2023-03-16 14:20] LABS: MALB Creatinine Ratio 65.8 mg/g (0-30); Microalbumin Urine Random 224.8 mg/L (0-16.7)
[2023-03-16 14:25] LABS: Hepatitis B Surface Antigen Negative (Negative)
[2023-03-16 14:31] LABS: HAV RESULT Negative (Negative); Hepatitis B Core IgM Result Negative (Negative)
[2023-03-16 14:47] LABS: Hepatitis C Virus Antibody Reactive (Negative)
[2023-03-16 17:03] LABS: Iron 62 ug/dL (37-170)
[2023-03-16 17:16] LABS: Percent Iron Saturation 18 % (20-50); Vitamin D 25 Hydroxy 13.2 ng/mL
[2023-03-20 14:24] LABS: Hepatitis C RNA, Quant PCR <15 IU/mL
== END 2023-03-16 08:51 | disposition home or self-care (01) ==
PROVIDERS: PCP Emergency Medicine; Visit Provider Internal Medicine Hematology & Oncology
DX: B17.10 Acute hepatitis C without hepatic coma (principal); E11.9 Type 2 diabetes mellitus without complications; F32.A Depression, unspecified; F41.9 Anxiety disorder, unspecified; E55.9 Vitamin D deficiency, unspecified; N28.9 Disorder of kidney and ureter, unspecified; R94.5 Abnormal results of liver function studies; R79.9 Abnormal finding of blood chemistry, unspecified; E66.9 Obesity, unspecified
CPT/HCPCS: 36415; 80053; 80061; 80074; 82043; 82306; 83036; 83540; 83550; 85027; 87522

== ENCOUNTER 2023-03-17 08:37 | Emergency (ER) | payer OTHER, SELFPAY ==
--- NOTE | ~2023-03-17 | CT_ITS ---
EXAMINATION: CT abdomen pelvis wo con DATE: 03/17/2023 09:18 INDICATION: Nausea, vomiting and diarrhea TECHNIQUE: Computed tomography (CT) of the abdomen and pelvis was performed without intravenous contr ast. The dose-length product was 1524.53 mGy-cm. Automated exposure control and iterative reconstruct ion technique were employed. COMPARISON: CT dated 11/05/2021 FINDINGS: Lung bases are unremarkable. Heart size normal. No significant pleural or pericardial effus ions. Fatty infiltration of the liver. Status post cholecystectomy. The spleen, pancreas, adrenal gla nds and kidneys are unremarkable. There is an accessory splenule. Nonobstructive bowel gas pattern. N ormal appendix. No evidence for diverticulitis. No significant vascular abnormality. No lymphadenopat hy. No acute osseous abnormality. IMPRESSION: 1. No acute abdominal abnormality. Reviewed, dictated and finalized at location B. [employer] SUR[employer]YOR
[2023-03-17 08:42] VITALS: BP 149/87; PULSE 92; RESP 16; TEMP 36.6; O2SAT 99
--- NOTE | 2023-03-17 08:53 | ED.GENADULT ---
HPI - General Adult General Chief complaint: Nausea/Vomiting/Diarrhea Stated complaint: n/v/d Time Seen by Provider: 03/17/23 08:41 History of Present Illness HPI narrative: 42-year-old female presenting to the emergency department for evaluation of nausea vomiting and diarrhea. Patient reports over last few days she has had pretty persistent nausea vomiting and diarrhea. Patient also has developed epigastric abdominal pain. Patient is a poorly controlled diabetic. Patient attempted to have follow-up with her primary care physician yesterday and she was referred to the emergency department. Patient did not come to the ED until today. Related Data Home Medications Medication Instructions Recorded Confirmed ibuprofen 800 mg tablet 800 mg PO TID 07/11/20 11/25/22 albuterol sulfate 90 mcg/actuation 1 puff inhalation Q4H PRN sob 12/05/21 11/25/22 aerosol inhaler ergocalciferol (vitamin D2) 1,250 1,250 mcg PO WEEKLY 12/05/21 11/25/22 mcg (50,000 unit) capsule fluticasone propionate 50 2 spray intranasal DAILY 12/05/21 11/25/22 mcg/actuation nasal spray,suspension (Flonase Allergy Relief) metformin 500 mg tablet 500 mg PO BIDWMEAL 12/05/21 11/25/22 sertraline 50 mg tablet (Zoloft) 50 mg PO DAILY 12/05/21 11/25/22 simvastatin 20 mg tablet 20 mg PO DAILY 12/05/21 11/25/22 Allergies Allergy/AdvReac Type Severity Reaction Status Date / Time povidone-iodine Allergy Severe TOLD NOT Verified 03/17/23 08:45 TO USE DUE TO SHELLFISH ALLERGY shellfish derived Allergy Severe THROAT Verified 03/17/23 08:45 SWELLING soap Allergy Severe TOLD NOT Verified 03/17/23 08:45 TO USE DUE TO SHELLFISH ALLERGY povidone Allergy Unknown Unknown Verified 03/17/23 08:45 Contrast Media Allergy Severe Unknown-TOLD Uncoded 11/25/22 12:50 BY PARENT NOT TO RECIEVE Review of Systems Review of Systems: All systems reviewed & are unremarkable except as noted in HPI and below PMFSH Past Medical History Medical History Anxiety Asthma DDD (degenerative disc disease), lumbar History of hepatitis C PTSD (post-traumatic stress disorder) Sciatica Surgical History Surgical History History of salpingo-oophorectomy Hx of cholecystectomy Hx of tonsillectomy Social History Social History Smoking packs per day: 1 Smoking cigarettes per day: 20.0 Years smoked: 30 Smoking pack-years: 30.00 Smoking status: Former smoker Smoking end date: 04/12/17 Alcohol intake: never Gender identity (if verbalized by the patient): Female Exam Narrative: APPEARANCE: Well appearing, no pain, no distress, well-nourished. HEAD: normocephalic, atraumatic. EYES: PERRLA/EOMI, conjunctivae clear. NOSE: Normal no drainage EARS:TMS clear with good light reflex. THROAT: Pharynx clear, no exudate. NECK: Supple. No adenopathy, no masses. RESPIRATORY: Airway patent, respirations nonlabored. Clear to auscultation bilaterally, no rales, rhonchi, wheezing. CARDIOVASCULAR: Regular rate and rhythm without murmurs rubs or gallops. ABDOMINAL: Soft, nontender, nondistended, normal bowel sounds MUSCULOSKELETAL: Moves all extremities. Strength/ROM intact, No edema, No calf tenderness. NEURO: Alert. Cranial nerves II through XII intact. Good gait. Good coordination SKIN: Warm, dry. Normal Color PSYCHIATRIC: Normal affect/mood. Course Course Emergency Course: 42-year-old female presenting to the emergency department for evaluation of nausea vomiting and diarrhea. Patient is afebrile with no leukocytosis stable hemoglobin. Patient has normal kidney function and no anion gap. Lipase is normal. Patient does have some ketones in her urine but no underlying evidence of infection. Patient is negative for influenza RSV and for COVID.
[2023-03-17 09:06] LABS: Basophils Percent Auto 0.5 % (0.2-1.2); Eosinophils Absolute Auto 0.1 K/mm3 (0-0.3); Eosinophils Percent Auto 1.3 % (0-4.4); Hematocrit 43.1 % (37.0-47.0); Hemoglobin 14.2 g/dL (12.0-15.0); Immature Granulocyte Absolute 0.07 K/mm3 (0.00-0.031); Immature Granulocyte Percent A 0.9 % (0-0.5); Lymphocytes Absolute Auto 2.15 K/mm3 (0.9-3.2); Lymphocytes Percent Auto 26.3 % (18.3-44.2); Mean Corpuscular HGB Conc 32.9 g/dl (32-36); Mean Corpuscular Hemoglobin 27.6 pg (26-34); Mean Corpuscular Volume 83.7 fl (80-100); Mean Platelet Volume 12.1 fl (7.4-10.4); Monocytes Absolute Auto 0.7 K/mm3 (0.1-0.6); Neutrophils Absolute Auto 5.2 K/mm3 (1.3-6.7); Platelet Count Result 279 k/mm3 (150-375); Red Blood Count 5.15 M/mm3 (4.2-5.4); Red Cell Distribution Width 12.3 % (11.5-14.5); White Blood Count 8.2 K/mm3 (4.5-10.0)
[2023-03-17 09:16] LABS: Alanine Aminotransferase 49 U/L (6-35); Albumin Level 4.3 g/dL (3.5-5.1); Alkaline Phosphatase 93 U/L (38-126); Anion Gap 11 mmol/L (8-16); Aspartate Amino Transferase 33 U/L (14-36); Bilirubin,Total 0.5 mg/dL (0.2-1.3); Blood Urea Nitrogen 15 mg/dL (7-17); Calcium 9.3 mg/dL (8.4-10.2); Carbon Dioxide 23 mmol/L (22-30); Chloride 104 mmol/L (98-107); Estimated CRCL calculation 182 ml/min; Estimated Glomerular Filt Rate > 60; Glucose 284 mg/dL (65-110); Lipase 65 U/L (23-300); Sodium 138 mmol/L (137-145)
[2023-03-17] MEDS: ONDANSETRON INJ 4 MG/2 ML VIAL IV PUSH (09:21)
[2023-03-17] MEDS: SODIUM CHLORIDE 0.9% IV 1,000 ML 999 ML IV CONT (09:22)
[2023-03-17 09:25] LABS: Appearance Urine Clear (Clear); Bacteria Urine Rare /hpf; Bilirubin Urine Negative (Negative); Blood Urine Negative (Negative); Color Urine Yellow (Yellow); Glucose Urine UA 3+ mg/dL (Negative); Ketones Urine Trace mg/dL (Negative); Leukocyte Esterase Ur Negative LEU/UL (Negative); Nitrate Urine Negative (Negative); Non Pathogenic Casts 0-2; Protein Urine 1+ mg/dL (Negative); RBC Urine 0-2 /hpf (0-2); Squamous Epithelial Cell Urine Occasional /hpf (Few); WBC Urine 0-5 /hpf
[2023-03-17 09:27] LABS: Add Urine Microscopic? YES; Specific Grav Ur 1.044 (1.001-1.035)
[2023-03-17 09:42] LABS: Influenza A QL RT-PCR Negative (Negative); Influenza B QL RT-PCR Negative (Negative); RSV RNA, RT-PCR Negative (Negative); SARS-CoV-2 RNA PCR Negative (Negative)
[2023-03-17 12:46] VITALS: BP 142/86; PULSE 88; RESP 16; O2SAT 98
== END 2023-03-17 12:46 | disposition home or self-care (01) ==
PROVIDERS: Emergency Provider Emergency Medicine; PCP Emergency Medicine
DX: R11.2 Nausea with vomiting, unspecified (principal); R19.7 Diarrhea, unspecified; Z20.822 Contact with and (suspected) exposure to COVID-19; J45.909 Unspecified asthma, uncomplicated; M51.36 Other intervertebral disc degeneration, lumbar region; F41.9 Anxiety disorder, unspecified; F43.10 Post-traumatic stress disorder, unspecified; Z86.19 Personal history of other infectious and parasitic diseases; Z87.891 Personal history of nicotine dependence; Z90.49 Acquired absence of other specified parts of digestive tract; Z90.79 Acquired absence of other genital organ(s); Z79.84 Long term (current) use of oral hypoglycemic drugs
CPT/HCPCS: 36415; 74176; 80053; 81001; 81025; 83690; 85025; 87637; 96361; 96374; 99284; J2405; J7030